=== PATIENT | male | born 1965 | race Caucasian/White ===

== ENCOUNTER 2016-05-20 16:31 | Emergency (ER) | payer MEDICAID ==
[~2016-05-20] VITALS: Wt 105.0 kg
[~2016-05-20 16:31] MED LIST: NO MEDS TAKEN
[2016-05-20] MEDS ORDERED: HYDR-902 PO (16:50)
[2016-05-20] MEDS ORDERED: ACYC800T57 PO (16:50)
--- NOTE | 2016-05-20 17:32 | ERD ---
ER Documentation Chief Complaint Date/Time DATE: 05/20/16 TIME: 17:30 Chief Complaint LOWER LEFT SIDED ABD PAIN X 3 DAYS HPI Patient is a 51-year-old male with no medical problems who presents with abdominal pain. The pain is left-sided and radiates down his lower back and over his upper left leg. He said that it feels warm and that there are "blisters filled with fluid". He has fevers. He tried ibuprofen for pain. He does not currently have a primary doctor. Upon review of old medical records patient one previous visit to the ER in 2010. ROS All systems reviewed and are negative except as per history of present illness. Medications Home Meds Active Scripts Hydrocodone/Acetaminophen ([place] 10-325 Tablet) 1 Each Tablet, 1 TAB PO Q6H Y for PAIN, #16 TAB Prov:STELLA PAVON MD 05/20/16 Acyclovir* (Zovirax*) 800 Mg Tablet, 800 MG PO 5 TIMES DAILY for 7 Days, TAB Prov:STELLA PAVON MD 05/20/16 Reported Medications [No Meds Taken] No Conflict Check 06/23/10 Allergies Allergies: Coded Allergies: No Known Drug Allergy (Verified Allergy, Mild, 06/23/10) PMhx/Soc Medical and Surgical Hx: pt denies Medical Hx History of Surgery: No Anesthesia Reaction: No Hx Neurological Disorder: No Hx Respiratory Disorders: No Hx Cardiac Disorders: No Hx Psychiatric Problems: No Hx Miscellaneous Medical Probl: No Hx Alcohol Use: No Hx Substance Use: No Hx Tobacco Use: No Smoking Status: Never smoker FmHx Family History: No diabetes Physical Exam Vitals Vital Signs Date Time Temp Pulse Resp B/P Pulse Ox O2 Delivery O2 Flow Rate FiO2 05/20/16 16:47 98.0 76 18 166/105 98 Physical Exam Const: Mild distress secondary to pain Head: Atraumatic Eyes: Normal Conjunctiva ENT: Normal External Ears, Nose and Mouth. Neck: Full range of motion..~ No meningismus. Resp: Clear to auscultation bilaterally Cardio: Regular rate and rhythm, no murmurs Abd: Soft, non tender, non distended. Normal bowel sounds Skin: Dermatomal distribution of vesicles over the L3 dermatome consistent with herpes zoster Back: No midline or flank tenderness Ext: No cyanosis, or edema Neur: Awake and alert Psych: Normal Mood and Affect Procedures/MDM Patient is a 51-year-old male presents with what appears to be acute herpes zoster. The patient will be given a prescription for [place] and acyclovir. This does not appear to be disseminated at this time. He is otherwise well- appearing. The patient will be discharged home and can follow-up with the local clinics within 24-48 hours for evaluation. He can return sooner for any worsening symptoms. Departure Diagnosis: Primary Impression: Shingles Herpes zoster complications: without complications Qualified Code: B02.9 - Herpes zoster without complication Condition: Fair Patient Instructions: Shingles (Herpes Zoster) [facility] Usted se ross hecho un examen mdico de control que le indica que no est en dat condicin que requiera tratamiento urgente en el Departamento de Emergencia. Un estudio ms profundo y el tratamiento de spence condicin pueden esperar sin ningn riesgo hasta que usted sea atendida/o en el consultorio de specne mdico o dat cl dayanna. Es responsabilidad suya arreglar dat donna para el seguimiento del elvira. MANEJO DE CONDICIONES NO URGENTES EN EL FUTURO 1) Si usted tiene un mdico de atencin primaria: Usted debera llamar a spence mdico de atencin primaria antes de venir al departamento de emergencia. Despus de las horas de consultorio, spence doctor o spence asociado/a est disponible por telfono. El mdico o enfermero de bautista en el servicio telefnico puede asesorarle por madi medio para atender el problema, o elvira contrario se puede programar dat donna. 2) Si usted no tiene un mdico de atencin primaria: Llame al mdico o clnica de referencia que aparece abajo monica las horas de consultorio para hacer dat donna para que le vean. CLINICAS: [facility] [phone] [address] [facility] [phone] [address] [facility] [phone] [facility] [phone] [facility] [phone] [facility]. [phone] [address] Additional Instructions: Llame al doctor MAANA y temi dat DONNA PARA DENTRO DE 1-2 NIELSEN.Dgale a la secretaria que nosotros le instruimos hacer esta donna.Avise o llame si spence condicin se empeora antes de la donna. Regresa aqui si peor o no mejor. STELLA PAVON MD May 20, 2016 17:32
== END 2016-05-20 17:23 | disposition home or self-care (01) ==
LOC: E/R 16:31
DX: B02.9 Zoster without complications (principal)
CPT/HCPCS: 99284

== ENCOUNTER 2016-05-27 20:01 | Emergency (ER) | payer MEDICAID ==
[~2016-05-27] VITALS: Ht 162.6 cm; Wt 92.0 kg
[~2016-05-27 20:01] MED LIST changes: +ACYC800T57 PO; +HYDR-902 PO
[2016-05-27 20:40] VITALS: Ht 162.6 cm; Wt 92.0 kg
[2016-05-27] MEDS ORDERED: ACETAMINOPHEN 325 MG TAB PO STA (21:37)
--- NOTE | 2016-05-27 21:42 | ERA ---
ER Documentation Chief Complaint Date/Time DATE: 05/27/16 TIME: 21:42 Chief Complaint Bilateral Leg pain x1 week HPI The patient is a 51-year-old male, presenting to the ER because of fever, weakness, bilateral knee pain for 1 day. He was diagnosed with shingles on May 20, 2016 and being treated with [place] and acyclovir. The rash on the right lower extremity is disappearing, however the pain is worse. He denies headache, neck pain, chest pain, dyspnea abdominal pain, vomiting, dysuria, diarrhea. He does not smoke nor drink Past medical/surgical history: None ROS All systems reviewed and are negative except as per history of present illness. Medications Home Meds Active Scripts Ibuprofen* (Motrin*) 600 Mg Tab, 600 MG PO Q6H Y for PAIN, #30 TAB Prov:MONTSERRAT SALES MD 05/27/16 Clindamycin Hcl* (Clindamycin Hcl*) 300 Mg Capsule, 300 MG PO QID for 10 Days, CAP Prov:MONTSERRAT SALES MD 05/27/16 Hydrocodone/Acetaminophen ([place] 10-325 Tablet) 1 Each Tablet, 1 TAB PO Q6H Y for PAIN, #16 TAB Prov:STELLA PAVON MD 05/20/16 Acyclovir* (Zovirax*) 800 Mg Tablet, 800 MG PO 5 TIMES DAILY for 7 Days, TAB Prov:STELLA PAVON MD 05/20/16 Reported Medications [No Meds Taken] No Conflict Check 06/23/10 Allergies Allergies: Coded Allergies: No Known Drug Allergy (Verified Allergy, Mild, 06/23/10) PMhx/Soc Medical and Surgical Hx: pt denies Surgical Hx History of Surgery: No Anesthesia Reaction: No Hx Neurological Disorder: Yes (seen for shingles 1 week ago) Hx Respiratory Disorders: No Hx Cardiac Disorders: No Hx Psychiatric Problems: No Hx Miscellaneous Medical Probl: Yes (gout, ) Hx Alcohol Use: No Hx Substance Use: No Hx Tobacco Use: No Smoking Status: Never smoker Physical Exam Vitals Vital Signs Date Time Temp Pulse Resp B/P Pulse Ox O2 Delivery O2 Flow Rate FiO2 05/27/16 23:51 99.3 94 16 133/72 99 05/27/16 20:40 102.0 110 20 157/101 96 Physical Exam Const: No acute distress. Head: Atraumatic. Eyes: Normal Conjunctiva. ENT: Normal External Ears, Nose and Mouth. Bilateral tympanic membranes and oropharynx are within normal limit Neck: Full range of motion. No meningismus. Resp: Clear to auscultation bilaterally. Cardio: Regular rate and rhythm, no murmurs. Abd: Soft, non distended, normal bowel sounds, non tender. Skin: No petechiae or rashes. Back: No midline or flank tenderness. Ext: No cyanosis, or edema. Bilateral knee with mild tender, bilateral elbow is with full range of motion, nontender. The shingle rash on the right lower extremity improved, no vesicle, no petechia, minimal erythema and minimally warm to touch. Vague bilateral calf tenderness Neur: Awake and alert. No focal deficit Psych: Normal Mood and Affect. Result Diagram: 05/27/165 05/27/165 Results 24 hrs Laboratory Tests Test 05/27/16 22:15 05/27/16 23:21 White Blood Count 11.910^3/ul Red Blood Count 4.7110^6/ul Hemoglobin 14.1g/dl Hematocrit 42.8% Mean Corpuscular Volume 90.9fl Mean Corpuscular Hemoglobin 29.9pg Mean Corpuscular Hemoglobin Concent 32.9g/dl Red Cell Distribution Width 13.2% Platelet Count 14706^3/UL Mean Platelet Volume 11.2fl Neutrophils % 69.2% Lymphocytes % 20.7% Monocytes % 8.7% Eosinophils % 0.3% Basophils % 0.5% Nucleated Red Blood Cells % 0.0/100WBC Neutrophils # 8.210^3/ul Lymphocytes # 2.510^3/ul Monocytes # 1.010^3/ul Eosinophils # 0.010^3/ul Basophils # 0.110^3/ul Nucleated Red Blood Cells # 0.010^3/ul Prothrombin Time 14.0Sec Prothrombin Time Ratio 1.1 INR International Normalized Ratio 1.08 Activated Partial Thromboplast Time 28.4Sec Sodium Level 139mmol/L Potassium Level 5.2mmol/L Chloride Level 104mmol/L Carbon Dioxide Level 25mmol/L Anion Gap 15 Blood Urea Nitrogen 18mg/dl Creatinine 1.12mg/dl Glucose Level 120mg/dl Lactic Acid Level 1.1mmol/L Calcium Level 9.4mg/dl Total Bilirubin 1.0mg/dl Direct Bilirubin 0.00mg/dl Indirect Bilirubin 1.0mg/dl Aspartate Amino Transf (AST/SGOT) 35IU/L Alanine Aminotransferase (ALT/SGPT) 42IU/L Alkaline Phosphatase 87IU/L Total Protein 9.3g/dl Albumin 4.4g/dl Globulin 4.90g/dl Albumin/Globulin Ratio 0.89 Lipase 125U/L Bedside Urine pH (LAB) 5.0 Bedside Urine Protein (LAB) Trace Bedside Urine Glucose (UA) Negative Bedside Urine Ketones (LAB) Negative Bedside Urine Blood Negative Bedside Urine Nitrite (LAB) Negative Bedside Urine Leukocyte Esterase (L Negative Current Medications Medications (Trade) Dose Ordered Sig/Rosa Route PRN Reason Start Time Stop Time Status Last Admin Dose Admin Acetaminophen (Tylenol Tab) 650 mg ONCE STAT PO 05/27/16 21:37 05/27/16 21:40 DC 05/27/16 21:56 Ibuprofen (Motrin) 600 mg ONCE ONCE PO 05/27/16 22:00 05/27/16 22:01 DC 05/27/16 21:55 Procedures/[place] [address] Radiology Main Line: [phone] DIAGNOSTIC IMAGING REPORT Patient: RUPAL MACHUCA : 1965 Age: 51 Sex: M [id number] DOS: 05/27/16 2137 Ordering MD: MONTSERRAT SALES MD Location: FTE Room/Bed: PROCEDURE: XR Knees. CLINICAL INDICATION: Bilateral knee pain. Sepsis. TECHNIQUE: Total of six views. Frontal, oblique, and lateral views of both knees. COMPARISON: No prior study is available for comparison. FINDINGS: On the right side, there is a bony exostosis arising from the distal medial femoral condyle measuring 1.3 x 1.3 cm. There is no fracture or dislocation. There is no lytic or blastic lesion. There are moderate degenerative changes with osteophytes arising from all 3 joint compartment margins and tricompartment joint space narrowing. There is no joint effusion. On the left side, there is no fracture or dislocation. There is no lytic or blastic lesion. There are moderate degenerative changes with osteophytes arising from all 3 joint compartment margins and tricompartment joint space narrowing. There is a small joint effusion. IMPRESSION: 1. Moderate degenerative changes of both knees. 2. Bony exostosis arising from the distal medial femoral condyle, probably a benign osteochondroma. 3. Small left knee joint effusion. RPTAT: QQ .Jon Voss MD, MD Date Time Electronically viewed and signed by .Jon Voss MD, on 05/27/2016 22:52 .R/ CC: MONTSERRAT SALES MD [place] [address] Radiology Main Line: [phone] DIAGNOSTIC IMAGING REPORT Patient: RUPAL MACHUCA : 1965 Age: 51 Sex: M MR #: [id number] DOS: 05/27/167 Ordering MD: MONTSERRAT SALES MD Location: FTE Room/Bed: PROCEDURE: XR Chest. CLINICAL INDICATION: Cough. Sepsis. TECHNIQUE: Single frontal view. COMPARISON: None. FINDINGS: The lungs are clear. The heart size is normal. There is calcification in the aorta consistent with atherosclerosis. There is no pleural effusion. There is no pneumothorax. IMPRESSION: 1. Atherosclerosis. 2. Clear lungs. RPTAT: QQ .Jon Voss MD, Date Time Electronically viewed and signed by .Jno Voss MD, MD on 05/27/2016 22:52 .R/ CC: MONTSERRAT SALES MD [place] [address] Radiology Main Line: [phone] DIAGNOSTIC IMAGING REPORT Patient: RUPAL MACHUCA : 1965 Age: 51 Sex: M MR #: [id number] [facility] #: [id number] DOS: 05/27/16 2201 Ordering MD: MONTSERRAT SALES MD Location: FTE Room/Bed: PROCEDURE: US bilateral lower extremity veins. CLINICAL INDICATION: Bilateral leg pain and swelling. TECHNIQUE: Multiple longitudinal and transverse images of the bilateral lower extremity veins were obtained with cano scale and color Doppler imaging. The common femoral vein, femoral vein, and popliteal vein were evaluated. 2D grayscale measurements with compression sonography, color Doppler, and pulsed Doppler with augmentation. COMPARISON: No prior studies are available for comparison. FINDINGS: The bilateral common femoral, femoral and popliteal veins are normally compressible throughout. Color flow demonstrates normal filling of the vessels. Normal waveforms are visualized and there is normal response to augmentation. IMPRESSION: 1. No evidence of deep vein thrombosis involving either lower extremity. RPTAT: QQ .Jon Voss MD, MD Date Time Electronically viewed and signed by .Jon Voss MD, MD on 05/27/2016 22:59 .R/ CC: MONTSERRAT SALES MD EKG: Read by emergency physician Rate/Rhythm: Normal Sinus Rhythm 99 beats per min QRS, ST, T-waves: No ST elevation, no T wave inversion Impression: Normal EKG MEDICAL MAKING DECISION: The patient is a 51-year-old male, presenting with acute SIRS, acute left lower extremity cellulitis, acute febrile illness of unclear etiology, acute bilateral knee pain. He was treated with Motrin and Tylenol for fever and clindamycin p.o. for left leg cellulitis with good response. Vital signs improved, blood pressure 133/72, rate 94, temperature 99.3 The differential diagnoses considered include but are not limited to septic knee joint, sepsis, pneumonia, cystitis, pyelonephritis Departure Diagnosis: Primary Impression: SIRS (systemic inflammatory response syndrome) Additional Impressions: Acute febrile illness Left leg cellulitis Condition: Good Comments He was discharged with clindamycin, Motrin He was advised to return tomorrow for reevaluation, sooner if any concern MONTSERRAT SALES MD May 27, 2016 21:42
[2016-05-27] MEDS ORDERED: IBUPROFEN 600 MG TAB PO ONE (22:00)
[2016-05-27 22:26] LABS: ADD SCAN DIFF NO
[2016-05-27 22:29] LABS: BASOPHIL # 0.1 10^3/ul (0.0-0.1); BASOPHILS % 0.5 % (0.0-2.0); EOSINOPHILS % 0.3 % (0.0-7.0); HEMATOCRIT 42.8 % (42.0-52.0); HEMOGLOBIN 14.1 g/dl (14.0-18.0); LYMPHOCYTES # 2.5 10^3/ul (0.8-2.9); LYMPHOCYTES % 20.7 % (15.0-51.0); MEAN CORPUSCULAR HEMOGLOBIN 29.9 pg (29.0-33.0); MEAN CORPUSCULAR HGB CONC 32.9 g/dl (32.0-37.0); MEAN CORPUSCULAR VOLUME 90.9 fl (82.0-101.0); MEAN PLATELET VOLUME 11.2 fl (7.4-10.4); MONOCYTES % 8.7 % (0.0-11.0); NEUTROPHIL # 8.2 10^3/ul (1.6-7.5); NEUTROPHILS % 69.2 % (39.0-77.0); PLATELET COUNT 247 10^3/UL (140-415); RED BLOOD COUNT 4.71 10^6/ul (4.70-6.10); RED CELL DISTRIBUTION WIDTH 13.2 % (11.5-14.5); WHITE BLOOD COUNT 11.9 10^3/ul (4.8-10.8)
[2016-05-27 22:40] LABS: ALBUMIN 4.4 g/dl (3.3-4.9)
[2016-05-27 22:41] LABS: INR 1.08; POTASSIUM 5.2 mmol/L (3.5-5.1); PT RATIO 1.1
[2016-05-27 22:42] LABS: PARTIAL THROMBOPLASTIN TIME 28.4 Sec (25.0-35.0)
[2016-05-27 22:43] LABS: ALBUMIN/GLOBULIN RATIO 0.89; CALCIUM 9.4 mg/dl (8.4-10.2); CREATININE 1.12 mg/dl (0.61-1.24); TOTAL PROTEIN 9.3 g/dl (6.1-8.1)
--- NOTE | 2016-05-27 22:52 | RADRPT ---
PROCEDURE: XR Knees. CLINICAL INDICATION: Bilateral knee pain. Sepsis. TECHNIQUE: Total of six views. Frontal, oblique, and lateral views of both knees. COMPARISON: No prior study is available for comparison. FINDINGS: On the right side, there is a bony exostosis arising from the distal medial femoral condyle measurin g 1.3 x 1.3 cm. There is no fracture or dislocation. There is no lytic or blastic lesion. There a re moderate degenerative changes with osteophytes arising from all 3 joint compartment margins and t ricompartment joint space narrowing. There is no joint effusion. On the left side, there is no fracture or dislocation. There is no lytic or blastic lesion. There are moderate degenerative changes with osteophytes arising from all 3 joint compartment margins and tricompartment joint space narrowing. There is a small joint effusion. IMPRESSION: 1. Moderate degenerative changes of both knees. 2. Bony exostosis arising from the distal medial femoral condyle, probably a benign osteochondroma. 3. Small left knee joint effusion. RPTAT: QQ .Jon Voss MD, MD Date Time Electronically viewed and signed by .Jon Voss MD, MD on 05/27/2016 22:52 .R/
--- NOTE | 2016-05-27 22:53 | RADRPT ---
PROCEDURE: XR Chest. CLINICAL INDICATION: Cough. Sepsis. TECHNIQUE: Single frontal view. COMPARISON: None. FINDINGS: The lungs are clear. The heart size is normal. There is calcification in the aorta consistent with atherosclerosis. There is no pleural effusion. There is no pneumothorax. IMPRESSION: 1. Atherosclerosis. 2. Clear lungs. RPTAT: QQ .Jon Voss MD, MD Date Time Electronically viewed and signed by .Jon Voss MD, MD on 05/27/2016 22:52 .R/
--- NOTE | 2016-05-27 22:59 | RADRPT ---
PROCEDURE: US bilateral lower extremity veins. CLINICAL INDICATION: Bilateral leg pain and swelling. TECHNIQUE: Multiple longitudinal and transverse images of the bilateral lower extremity veins were obtained with cano scale and color Doppler imaging. The common femoral vein, femoral vein, and popl iteal vein were evaluated. 2D grayscale measurements with compression sonography, color Doppler, and pulsed Doppler with augmentation. COMPARISON: No prior studies are available for comparison. FINDINGS: The bilateral common femoral, femoral and popliteal veins are normally compressible throughout. Col or flow demonstrates normal filling of the vessels. Normal waveforms are visualized and there is no rmal response to augmentation. IMPRESSION: 1. No evidence of deep vein thrombosis involving either lower extremity. RPTAT: QQ .Jno Voss MD, MD Date Time Electronically viewed and signed by .Jon Voss MD, on 05/27/2016 22:59 .R/
[2016-05-27 23:22] LABS: URINE BLOOD (Dip) POC Negative (NEGATIVE)
[2016-05-27] MEDS ORDERED: CLIN-73 PO (23:44)
[2016-05-27] MEDS ORDERED: IBUP-1542 PO (23:45)
[2016-05-27 23:51] VITALS: BP 133/72; PULSE 94; RESP 16; TEMP 99.3
[2016-05-28] MEDS ORDERED: CLINDAMYCIN 300 MG CAP PO ONE
== END 2016-05-28 00:32 | disposition home or self-care (01) ==
LOC: FTE 20:01
DX: R50.9 Fever, unspecified (principal); R65.10 Systemic inflammatory response syndrome (SIRS) of non-infectious origin without acute organ dysfunction; L03.116 Cellulitis of left lower limb; M79.605 Pain in left leg
CPT/HCPCS: 71010; 73562; 80053; 81003; 83605; 83690; 85025; 85610; 85730; 87040; 93005; 93970; Z7610

== ENCOUNTER 2016-06-03 16:51 | Emergency (ER) | payer MEDICAID ==
[~2016-06-03] VITALS: Wt 91.0 kg
[~2016-06-03 16:51] MED LIST changes: +CLIN-73 PO; +IBUP-1542 PO
[2016-06-03 16:53] VITALS: Wt 91.0 kg
--- NOTE | 2016-06-03 17:57 | ERD ---
ER Documentation Chief Complaint Date/Time DATE: 06/03/16 TIME: 17:52 Chief Complaint LEFT LEG RASH POSSIBLY SHINGLES HPI 51-year-old male who presents to the emergency room for rashes to left lower extremity. Stated is more on her posterior left knee on flexion. Stated it was itchy for her. Stated that he was here like more than a week ago for the same symptoms. Was prescribed with acyclovir by emergency room provider at that time. Patient stated that he finished the whole course of ascitic liver. Patient stated that he still has mild pain to the area and some itchiness. Denies headache, loss of consciousness, dizziness, blurry vision, changes in vision, photophobia, facial pain, ear pain, throat pain, difficulty swallowing, neck pain, shoulder pain, chest pain, cough, hemoptysis, abdominal pain, back pain, loss of appetite, nausea, vomiting, hematochezia, diarrhea, constipation, urinary symptoms, bladder and bowel incontinences, extremity weakness, extremity tenderness, numbness or tingling sensation, difficulty walking, recent travel, recent exposure to illness, fever, chills. Allergy: No known drug allergies. PMH: Denies. Medications: Denies. Surgery: Denies. Family history: Denies. Primary Social History: Not working at this time. Denies smoking, use of alcohol, use of illegal drugs. ROS All systems reviewed and are negative except as per history of present illness. Medications Home Meds Active Scripts Ibuprofen* (Motrin*) 800 Mg Tab, 800 MG PO Q6H Y for PAIN AND OR ELEVATED TEMP, #30 TAB Prov:LUTHER BOLDEN F 06/03/16 Prednisone (Prednisone) 20 Mg Tablet, 40 MG PO DAILY for 3 Days, TAB Prov:PASILABAN,KLAR F 06/03/16 Prednisone (Prednisone) 20 Mg Tab, 20 MG PO DAILY for 3 Days, TAB Prov:PASILABANULYSSESAR F 06/03/16 Prednisone (Prednisone) 10 Mg Tab, 10 MG PO DAILY for 3 Days, TAB Prov:PASILAULYSSES RAMIREZAR F 06/03/16 Ibuprofen* (Motrin*) 600 Mg Tab, 600 MG PO Q6H Y for PAIN, #30 TAB Prov:MONTSERRAT SALES MD 05/27/16 Clindamycin Hcl* (Clindamycin Hcl*) 300 Mg Capsule, 300 MG PO QID for 10 Days, CAP Prov:MONTSERRAT SALES MD 05/27/16 Hydrocodone/Acetaminophen ([place] 10-325 Tablet) 1 Each Tablet, 1 TAB PO Q6H Y for PAIN, #16 TAB Prov:STELLA PAVON MD 05/20/16 Acyclovir* (Zovirax*) 800 Mg Tablet, 800 MG PO 5 TIMES DAILY for 7 Days, TAB Prov:STELLA PAVON MD 05/20/16 Reported Medications [No Meds Taken] No Conflict Check 06/23/10 Allergies Allergies: Coded Allergies: No Known Drug Allergy (Verified Allergy, Mild, 06/23/10) PMhx/Soc History of Surgery: No Anesthesia Reaction: No Hx Neurological Disorder: Yes (seen for shingles 1 week ago) Hx Respiratory Disorders: No Hx Cardiac Disorders: No Hx Psychiatric Problems: No Hx Miscellaneous Medical Probl: Yes (gout, ) Hx Alcohol Use: No Hx Substance Use: No Hx Tobacco Use: No Physical Exam Vitals Vital Signs Date Time Temp Pulse Resp B/P Pulse Ox O2 Delivery O2 Flow Rate FiO2 06/03/16 16:53 99.0 108 18 179/99 98 Physical Exam Const: Head: Atraumatic Eyes: Normal Conjunctiva ENT: Normal External Ears, Nose and Mouth. Neck: Full range of motion..~ No meningismus. Resp: Clear to auscultation bilaterally Cardio: Regular rate and rhythm, no murmurs Abd: Soft, non tender, non distended. Normal bowel sounds Skin: No petechiae. Healed vesicular rashes to left anterior and posterior knee with no obvious swelling/redness/deformity. Skin is not warm to touch. Back: No midline or flank tenderness Ext: No cyanosis, or edema Neur: Awake and alert Psych: Normal Mood and Affect Procedures/MDM Examination: Please see physical examination. Disease process, medical treatment was explained to the patient and family member. They verbalized understanding and agreed with the medical treatment, and follow-up care. Differential diagnosis: Shingles versus rash versus postherpetic neuralgia Medical decision makin-year-old male who presents to the emergency room for rashes to left lower extremity. Stated is more on her posterior left knee on flexion. Stated it was itchy for her. Stated that he was here like more than a week ago for the same symptoms. Was prescribed with a sick liver by emergency room provider at that time. Patient stated that he still complains of mild pain to the area and some itchiness. Patient's complaint, my physical findings, my reevaluation, I consistent with my final diagnosis of shingles, itchiness, mild pain due to postherpetic neuralgia. Medications prescribed are the following: Motrin. Prednisone. Patient and family member are made aware of the side effects and adverse reactions of the medications prescribed. Instructed on when to seek emergent and medical attention in case allergic/anaphylactic reactions or severe side effects and or adverse reactions to medications. Patient and family member verbalized understanding. Patient instructed Instructed to follow-up with his PCP in 24-48 hours. PCP to refer patient to service captain. Patient and family member verbalized understanding. Instructed to Call 911 for chest pain, shortness of breath. Advised to come back here in ED as soon as possible for severity of symptoms which includes but not limited to: any new symptoms; shortness of breath/difficulty of breathing; cardiovascular changes; severe gastrointestinal symptoms; signs and symptoms of bleeding and or infection; signs of compartment syndrome/neurovascular changes; neurological changes/deficits. Patient and family member verbalized understanding. Upon discharge, patient is alert and oriented x 4, speaks full and clear sentences, denies pain, has no neurological deficits, has no neurovascular deficits, difficulty of breathing. Breathing even and unlabored. Lung sounds are clear to auscultation. Not in distress. Appears comfortable. Ambulatory with steady gait. Appears satisfied with care provided here in ED. Departure Diagnosis: Primary Impression: Rash Additional Impression: Shingles Condition: Good Additional Instructions: Patient instructed Instructed to follow-up with his PCP in 24-48 hours. PCP to refer patient to service captain. Patient and family member verbalized understanding. Instructed to Call 911 for chest pain, shortness of breath. Advised to come back here in ED as soon as possible for severity of symptoms which includes but not limited to: any new symptoms; shortness of breath/difficulty of breathing; cardiovascular changes; severe gastrointestinal symptoms; signs and symptoms of bleeding and or infection; signs of compartment syndrome/neurovascular changes; neurological changes/deficits. Patient and family member verbalized understanding. LUTHER BOLDEN Jun 03, 2016 17:56 Condition: Good Additional Instructions: Patient instructed Instructed to follow-up with his PCP in 24-48 hours. PCP to refer patient to service captain. Patient and family member verbalized understanding. Instructed to Call 911 for chest pain, shortness of breath. Advised to come back here in ED as soon as possible for severity of symptoms which includes but not limited to: any new symptoms; shortness of breath/difficulty of breathing; cardiovascular changes; severe gastrointestinal symptoms; signs and symptoms of bleeding and or infection; signs of compartment syndrome/neurovascular changes; neurological changes/deficits. Patient and family member verbalized understanding. LUTHER BOLDEN Jun 03, 2016 17:56
[2016-06-03] MEDS ORDERED: PRED20TA PO (18:00)
[2016-06-03] MEDS ORDERED: PRED10TA PO (18:00)
[2016-06-03] MEDS ORDERED: PRED20 PO (18:00)
[2016-06-03] MEDS ORDERED: IBUP800T25 PO (18:01)
== END 2016-06-03 18:03 | disposition home or self-care (01) ==
LOC: E/R 16:51
DX: R21 Rash and other nonspecific skin eruption (principal); B02.9 Zoster without complications
CPT/HCPCS: 99283

== ENCOUNTER 2016-06-12 17:34 | Emergency (ER) | payer MEDICAID ==
[~2016-06-12] VITALS: Ht 165.1 cm; Wt 91.0 kg
[~2016-06-12 17:34] MED LIST changes: +IBUP800T25 PO; +PRED10TA PO; +PRED20TA PO
[2016-06-12 17:44] VITALS: Ht 165.1 cm; Wt 91.0 kg
--- NOTE | 2016-06-12 18:29 | ERD ---
ER Documentation Chief Complaint Date/Time DATE: 06/12/16 TIME: 18:21 Chief Complaint LEFT KNEE PAIN HPI This 51-year-old, [place]-speaking, male patient presents to the emergency department today with complaint of left knee pain. Difficulty ambulating. Patient brings in discharge paperwork documenting that he was seen and treated for a left lower extremity cellulitis on May 27, 2016. Treated with clindamycin and ibuprofen. Patient reports he took full course of antibiotics, is taking the ibuprofen with little relief of symptoms. Patient is utilizing crutches to ambulate, is unable to weight-bear. Denies injury, denies fall, denies numbness or tingling to extremities. Reports pain with weightbearing, flexion and extension of left knee. Patient family on speaker phone for translation. ROS All systems reviewed and are negative except as per history of present illness. Medications Home Meds Active Scripts Naproxen* (Naprosyn*) 500 Mg Tablet, 500 MG PO BID Y for PAIN AND/OR INFLAMMATION, #30 TAB Prov:SONDRA,CARSON 06/12/16 Hydrocodone/Acetaminophen ([place] 5-325 Tablet) 1 Each Tablet, 1 TAB PO Q6H Y for PAIN, #7 TAB Prov:SONDRA,CARSON 06/12/16 Ibuprofen* (Motrin*) 800 Mg Tab, 800 MG PO Q6H Y for PAIN AND OR ELEVATED TEMP, #30 TAB Prov:PASILAULYSSES RAMIREZAR F 06/03/16 Prednisone (Prednisone) 20 Mg Tablet, 40 MG PO DAILY for 3 Days, TAB Prov:PASILABANULYSSESAR F 06/03/16 Prednisone (Prednisone) 20 Mg Tab, 20 MG PO DAILY for 3 Days, TAB Prov:PASILABANULYSSESAR F 06/03/16 Prednisone (Prednisone) 10 Mg Tab, 10 MG PO DAILY for 3 Days, TAB Prov:PASILABAN,KLAR F 06/03/16 Ibuprofen* (Motrin*) 600 Mg Tab, 600 MG PO Q6H Y for PAIN, #30 TAB Prov:MONTSERRAT SALES MD 05/27/16 Clindamycin Hcl* (Clindamycin Hcl*) 300 Mg Capsule, 300 MG PO QID for 10 Days, CAP Prov:MONTSERRAT SALES MD 05/27/16 Hydrocodone/Acetaminophen ([place] 10-325 Tablet) 1 Each Tablet, 1 TAB PO Q6H Y for PAIN, #16 TAB Prov:STELLA PAVON MD 05/20/16 Acyclovir* (Zovirax*) 800 Mg Tablet, 800 MG PO 5 TIMES DAILY for 7 Days, TAB Prov:STELLA PAVON MD 05/20/16 Reported Medications [No Meds Taken] No Conflict Check 06/23/10 Allergies Allergies: Coded Allergies: No Known Drug Allergy (Verified Allergy, Mild, 06/12/16) PMhx/Soc History of Surgery: No Anesthesia Reaction: No Hx Neurological Disorder: No Hx Respiratory Disorders: No Hx Cardiac Disorders: No Hx Psychiatric Problems: No Hx Miscellaneous Medical Probl: Yes (gout, ) Hx Alcohol Use: No Hx Substance Use: No Hx Tobacco Use: No Smoking Status: Never smoker Physical Exam Vitals Vital Signs Date Time Temp Pulse Resp B/P Pulse Ox O2 Delivery O2 Flow Rate FiO2 06/12/16 17:44 98.5 99 18 140/93 99 Vitals stable, triage notes reviewed Physical Exam Const: No acute distress Head: Atraumatic Eyes: Normal Conjunctiva, PERRLA, EOMI ENT: Normal External Ears, Nose and Mouth. Neck: Resp: Cardio: Abd: Skin: Skin is cool to touch, no petechiae or rashes Back: Ext: Lower Extremity -left knee: Skin: No laceration Compartments: Soft Motor: Abnormal range of motion with flexion and extension, negative anterior drawer test Sensation: Intact to light touch anterior posterior and lateral surfaces Bones: Patellar tenderness, no tibial tenderness ankle or tenderness of foot or heel. Joints: Soft tissue swelling noted. Pulses/Perfusion: 2+ DP, Capillary refill < 2 seconds Neur: Awake and alert Psych: Normal Mood and Affect Results 24 hrs Current Medications Medications (Trade) Dose Ordered Sig/Rosa Route PRN Reason Start Time Stop Time Status Last Admin Dose Admin Acetaminophen/ Hydrocodone Bitart ([place] (5/325)) 1 tab ONCE ONCE PO 06/12/16 18:30 06/12/16 18:31 DC 06/12/16 18:32 This 51-year-old male patient presents to emergency department for evaluation of left knee pain after treatment of cellulitis. Patient was seen and treated June 27, 2016 with 10 days of clindamycin and ibuprofen. Patient reports taking full course of antibiotic, states ibuprofen is not effective for pain. He has not followed up with his primary care physician. Patient is ambulating on crutches, pain with weightbearing. Physical exam shows no evidence of skin infection. No evidence of septic joint, or fracture suspected patellar effusion , osteoarthritis, x-ray obtained Procedures/MDM PROCEDURE: X-ray left knee. CLINICAL INDICATION: Pain in left knee with cellulitis. TECHNIQUE: 3 views left knee. COMPARISON: Left knee plain film series dated 05/27/2016 FINDINGS: Mild osteophytes in the patellofemoral joint compartment and medial joint compartment. No acute fracture or dislocation. Small joint effusion. Soft tissues are otherwise unremarkable. IMPRESSION: Mild degenerative changes, with small joint effusion, and otherwise without identified acute process. Physician Gianna Date Time This pleasant 51-year-old male patient presents to the emergency department with left knee pain. Patient is ambulating with crutches, reports pain with weightbearing, and physical exam findings support soft tissue swelling, suspected patella effusion. Decreased range of motion. Skin is not hot to touch, no erythema, or suspicion of cellulitis, septic joints, patient denies any injury. Highly suspicious for osteoarthritis x-ray findings mild osteophytes and patellofemoral joint compartment and medial joint compartment no acute fracture or dislocation, small joint effusion soft tissues are otherwise unremarkable. I feel patient is appropriate for outpatient follow-up and management by primary care physician. Degenerative joint disease. Patient will be placed in a knee brace, continue crutches. Given a short dose of [place] , and Naprosyn. Instructed to follow-up with primary care physician for possible referral to local orthopedic physician. I feel the patient is stable for discharge at this time. I have discussed results, examination findings, the treatment plan with the patient and family present prior to discharge. Indications for emergent reevaluation, side effects of medication were also discussed. All questions were answered. Patient verbalizes understanding and agrees with plan of care. Departure Diagnosis: Primary Impression: Knee pain Laterality: left Chronicity: chronic Qualified Code: M25.562 - Chronic pain of left knee Additional Impression: Degenerative joint disease Osteoarthritis location: knee Osteoarthritis type: unspecified Laterality: left Qualified Code: M17.12 - Osteoarthritis of left knee, unspecified osteoarthritis type Condition: Good Patient Instructions: Knee Pain, Uncertain Cause, Living with Osteoarthritis Additional Instructions: Thank you for for coming to [facility] for your care today. Please ask your nurse or provider if you have questions about your care today and do not leave until all your questions have been answered. Please use any medications given as directed and follow-up with your doctor (or the doctor you were referred to) in the next 2-3 days. If you do not have a primary care doctor you may follow up at the [facility] (listed below). You may also use motrin and tylenol as needed for fever and/or pain unless instructed otherwise by your provider or nurse. Indications for more urgent follow-up have been discussed, but you may return to the Emergency Department at ANY time for any worrisome or worsening symptoms. If you have abdominal pain, please know that no test or exam you received is perfect and you should follow up within 8 hours for continued pain. If you had any imaging studies today, such as an X-Ray or CT Scan, these studies will be reviewed later by a radiologist. You will be called if there are important findings that were not identified today, so make sure the contact information you provided at registration is correct. If you received any narcotic pain control medicine today, such as Vicodin, Morphine or Dilaudid, your coordination and judgment may be affected for a number of hours. Please do not drive or operate heavy machinery, and you may want someone to assist you at home. If you were given a prescription for narcotic medication, be aware that it is very addictive- use sparingly and only if necessary. CARSON AMARO Jun 12, 2016 18:29
[2016-06-12] MEDS ORDERED: HYDROCODONE/APAP (5/325) TAB PO ONE (18:30)
--- NOTE | 2016-06-12 20:24 | RADRPT ---
PROCEDURE: X-ray left knee. CLINICAL INDICATION: Pain in left knee with cellulitis. TECHNIQUE: 3 views left knee. COMPARISON: Left knee plain film series dated 05/27/2016 FINDINGS: Mild osteophytes in the patellofemoral joint compartment and medial joint compartment. No acute fra cture or dislocation. Small joint effusion. Soft tissues are otherwise unremarkable. IMPRESSION: Mild degenerative changes, with small joint effusion, and otherwise without identified acute process . RPTAT: [facility] Physician Gianna Date Time Electronically viewed and signed by Nikia Rodriguez Physician on 06/12/2016 20:24 RS/
[2016-06-12] MEDS ORDERED: NAPR-260 PO (21:01)
[2016-06-12] MEDS ORDERED: HYDR-906 PO (21:01)
== END 2016-06-12 21:18 | disposition home or self-care (01) ==
LOC: FTE 17:34
DX: M25.562 Pain in left knee (principal); M17.12 Unilateral primary osteoarthritis, left knee
CPT/HCPCS: 73562; Z7610

== ENCOUNTER 2016-07-14 18:51 | Emergency (ER) | payer MEDICAID ==
[~2016-07-14] VITALS: Ht 177.8 cm; Wt 96.0 kg
[~2016-07-14 18:51] MED LIST changes: +HYDR-906 PO; +NAPR-260 PO
[2016-07-14 18:58] VITALS: Ht 177.8 cm; Wt 96.0 kg
[2016-07-14] MEDS ORDERED: KETOROLAC 30 MG INJ IM STA (19:29)
[2016-07-14] MEDS ORDERED: COLC0.6T6 PO (19:32)
--- NOTE | 2016-07-14 19:39 | ERD ---
ER Documentation Chief Complaint Date/Time DATE: 07/14/16 TIME: 19:36 Chief Complaint med refill HPI 51-year-old male with a history of gout comes emergency room with left-sided hand pain, left knee pain and left ankle pain for the past several weeks. Pain is achy, worse with movement. Patient states that he does have a history of gout however has not been taking his medication, he also states that he did eat red meat and shellfish a week ago. He denies any trauma or fevers or chills. No associated rash with this. ROS All systems reviewed and are negative except as per history of present illness. Medications Home Meds Active Scripts Colchicine* (Colcrys*) 0.6 Mg Tablet, 0.6 MG PO as directed, #3 TAB Prov:MARKO ROSENBAUM PA-C 07/14/16 Naproxen* (Naprosyn*) 500 Mg Tablet, 500 MG PO BID Y for PAIN AND/OR INFLAMMATION, #30 TAB Prov:SONDRA,CARSON 06/12/16 Hydrocodone/Acetaminophen ([place] 5-325 Tablet) 1 Each Tablet, 1 TAB PO Q6H Y for PAIN, #7 TAB Prov:SONDRA,CARSON 06/12/16 Ibuprofen* (Motrin*) 800 Mg Tab, 800 MG PO Q6H Y for PAIN AND OR ELEVATED TEMP, #30 TAB Prov:PASILABANULYSSESAR F 06/03/16 Prednisone (Prednisone) 20 Mg Tablet, 40 MG PO DAILY for 3 Days, TAB Prov:PASILABAN,KLAR F 06/03/16 Prednisone (Prednisone) 20 Mg Tab, 20 MG PO DAILY for 3 Days, TAB Prov:PASILABANULYSSESAR F 06/03/16 Prednisone (Prednisone) 10 Mg Tab, 10 MG PO DAILY for 3 Days, TAB Prov:PASILABAN,KLAR F 06/03/16 Ibuprofen* (Motrin*) 600 Mg Tab, 600 MG PO Q6H Y for PAIN, #30 TAB Prov:MONTSERRAT SALES MD 05/27/16 Clindamycin Hcl* (Clindamycin Hcl*) 300 Mg Capsule, 300 MG PO QID for 10 Days, CAP Prov:MONTSERRAT SALES MD 05/27/16 Hydrocodone/Acetaminophen ([place] 10-325 Tablet) 1 Each Tablet, 1 TAB PO Q6H Y for PAIN, #16 TAB Prov:OSTICK,STELLA MD 05/20/16 Acyclovir* (Zovirax*) 800 Mg Tablet, 800 MG PO 5 TIMES DAILY for 7 Days, TAB Prov:STELLA PAVON MD 05/20/16 Reported Medications [No Meds Taken] No Conflict Check 06/23/10 Allergies Allergies: Coded Allergies: No Known Drug Allergy (Verified Allergy, Mild, 06/12/16) PMhx/Soc Medical and Surgical Hx: pt denies Surgical Hx History of Surgery: No Anesthesia Reaction: No Hx Neurological Disorder: No Hx Respiratory Disorders: No Hx Cardiac Disorders: No Hx Psychiatric Problems: No Hx Miscellaneous Medical Probl: Yes (gout, ) Hx Alcohol Use: No Hx Substance Use: No Hx Tobacco Use: No Smoking Status: Never smoker Physical Exam Vitals Vital Signs Date Time Temp Pulse Resp B/P Pulse Ox O2 Delivery O2 Flow Rate FiO2 07/14/16 18:58 97.8 90 20 165/90 98 Physical Exam General: Well-developed, well-nourished. The patient appears in no acute distress. HEENT: Head is normocephalic, atraumatic. No scleral icterus. Neck: Supple. Nontender. Lungs: Clear to auscultation. Normal air movement. Heart: Regular rate and rhythm. S1 and S2 are normal. No murmurs, gallops, or rubs. Abdomen: Soft, nontender, nondistended. Bowel sounds are normoactive. Extremities: Left wrist is atraumatic, has full range of motion flexion extension, no overlying erythema, no rash. Left knee has full range of motion flexion extension, no erythema or warmth. Patient's left ankle and foot appear to be atraumatic, dorsalis pedis pulse 2+, good capillary refill. Neurologic: Alert and oriented 3. No focal deficits. Skin: Normal turgor. No rash or lesions. Results 24 hrs Current Medications Medications (Trade) Dose Ordered Sig/Rosa Route PRN Reason Start Time Stop Time Status Last Admin Dose Admin Ketorolac Tromethamine (Toradol) 30 mg ONCE STAT IM 07/14/16 19:29 07/14/16 19:30 DC Procedures/MDM ED course: Patient was given Toradol 30 mg IM. MDM: 51-year-old male comes in with left wrist, left knee, left ankle pain, likely from gouty arthritis. Patient has full range of motion to all joints, there is no associated febrile illness, rash or signs of infection. Differentials considered but unlikely include tenosynovitis, osteomyelitis, septic joint, fracture, subluxation or dislocation. He was given Toradol and responded well, and will be given colchicine to go home with. Departure Diagnosis: Primary Impression: Gout Condition: Good Patient Instructions: Treating Gout Attacks, Gout Diet Additional Instructions: Llame al doctor MAANA y temi dat DONNA PARA DENTRO DE 1-2 NIELSEN.Dgale a la secretaria que nosotros le instruimos hacer esta donna.Avise o llame si spence condicin se empeora antes de la donna. Regresa aqui si peor o no mejor. MARKO ROSENBAUM PA-C July 14, 2016 19:39
== END 2016-07-14 20:40 | disposition home or self-care (01) ==
LOC: FTE 18:51
DX: M10.9 Gout, unspecified (principal)
CPT/HCPCS: 96372; J1885; Z7502

== ENCOUNTER 2016-12-08 18:40 | Emergency (ER) | payer SELFPAY ==
[~2016-12-08] VITALS: Ht 160 cm; Wt 98.0 kg
[~2016-12-08 18:40] MED LIST changes: +COLC0.6T6 PO
[2016-12-08 19:21] VITALS: Ht 160 cm; Wt 98.0 kg
== END 2016-12-08 22:28 | disposition left against medical advice (07) ==
LOC: FTE 18:40
DX: Z53.21 Procedure and treatment not carried out due to patient leaving prior to being seen by health care provider (principal)

== ENCOUNTER 2017-01-31 14:24 | Emergency (ER) | payer MEDICAID ==
[~2017-01-31] VITALS: Wt 95.0 kg
[2017-01-31] MEDS ORDERED: ONDANSETRON 4 MG INJ IV STA (16:46)
[2017-01-31] MEDS ORDERED: FAMOTIDINE 20 MG INJ IV STA (16:46)
[2017-01-31] MEDS ORDERED: SOD CHLORIDE 0.9% 1,000 ML IV STA (16:46)
[2017-01-31] MEDS ORDERED: morphine 4 MG/ML VIAL IV STA (16:46)
[2017-01-31 17:15] LABS: BASOPHILS % 0.4 % (0.0-2.0); HEMATOCRIT 44.4 % (42.0-52.0); HEMOGLOBIN 15.3 g/dl (14.0-18.0); LYMPHOCYTES # 1.3 10^3/ul (0.8-2.9); LYMPHOCYTES % 12.1 % (15.0-51.0); MEAN CORPUSCULAR HEMOGLOBIN 29.9 pg (29.0-33.0); MEAN CORPUSCULAR HGB CONC 34.5 g/dl (32.0-37.0); MEAN CORPUSCULAR VOLUME 86.7 fl (82.0-101.0); MEAN PLATELET VOLUME 11.6 fl (7.4-10.4); MONOCYTE # 0.3 10^3/ul (0.3-0.9); MONOCYTES % 3.1 % (0.0-11.0); NEUTROPHIL # 9.3 10^3/ul (1.6-7.5); NEUTROPHILS % 83.9 % (39.0-77.0); PLATELET COUNT 224 10^3/UL (140-415); RED BLOOD COUNT 5.12 10^6/ul (4.70-6.10); RED CELL DISTRIBUTION WIDTH 12.9 % (11.5-14.5)
--- NOTE | 2017-01-31 17:29 | RADRPT ---
PROCEDURE: CT abdomen and pelvis without contrast. CLINICAL INDICATION: Abdominal pain. Vomiting for 2 days TECHNIQUE: CT scan of the abdomen and pelvis without contrast was performed. Sagittal and coronal reformatted images were obtained from the axial source images. One or more of the following dose re duction techniques were used: Automated exposure control, adjustment of the mA and/or kV according t o patient size, use of iterative reconstruction technique. CTDI = 18.36 mGy; DLP = 1303.63 mGy-cm COMPARISON: None available. FINDINGS: The study is limited because of motion artifact. Visualized lower thorax: The lung bases are clear of acute infiltrates, calcified granuloma in the inferior lingula is present. There is some subsegmental atelectasis of the right lower lobe with chris vation of the right hemidiaphragm. There is no evidence for pleural effusion. Cardiomegaly is prese nt. Liver, gallbladder, pancreas and spleen: Diffuse low attenuation of the liver is compatible with he patic steatosis with preserved liver size and contour> . There is no evidence for a liver mass or d uctal dilatation. The gallbladder is unremarkable. No common bile duct abnormality is demonstrated . The pancreas is unremarkable. The spleen is normal in size. Adrenal glands and genitourinary system: The adrenal glands are normal bilaterally. Lobulated conto ur to the kidneys is present bilaterally possibly the sequela of scarring. There are small cysts of the renal cortices bilaterally with some dependent calcifications of the right renal cysts. Equivoca l tiny 1 mm right upper pole renal calculi are suggested without hydronephrosis of either kidney. T he ureters are unremarkable. A calcification in the anterior superior urinary bladder is estimated a t 4 mm possibly an adherent bladder calculus or calculus within a small bladder diverticulum. The se quela of infection is a possibility. There is no urinary bladder wall thickening. The prostate glan d is normal in size. The visualized scrotum shows a tiny bilateral hydroceles. There is a small fat- containing right inguinal hernia Gastrointestinal system: The stomach is normal in caliber with no abnormality of significance. The small bowel is normal in caliber with no ileus, obstruction or wall thickening. The appendix and s urrounding fat are within the limits of normal. Some diverticular disease of the distal colon is pr esent. There is no evidence for colitis or diverticulitis. Peritoneum, retroperitoneum, lymph nodes and vessels: The abdominal aorta is normal in caliber. The re is no evidence for atherosclerotic calcification. The inferior vena cava is unremarkable. There is no evidence for adenopathy or mass. There is no ascites. No pneumoperitoneum is seen Osseous structures and musculoskeletal findings: There is no fracture, lytic or blastic lesion. De generative disc disease is greatest at L2-3 and L5-S1. There is 50 spondylolysis bilaterally without spondylolisthesis No muscular abnormality or soft tissue pathology is present. RPTAT:HJJR IMPRESSION: 1. Limited examination because of motion artifact. 2. No evidence of a bowel obstruction or ileus. 3. Cardiomegaly, right basilar subsegmental atelectasis with mild right hemidiaphragm elevation and chronic granulomatous disease of the visualized thorax. 4. Hepatic steatosis. 5. Lobulated renal contour bilaterally with likely acquired cystic disease of the kidneys and equiv ocal tiny nonobstructing right upper pole renal calculi. 6. Calcification in the anterior superior urinary bladder possibly an adherent bladder calculus of 4 mm. 7. Tiny bilateral hydroceles. 8. Small fat-containing right inguinal hernia. 9. Minimal diverticular disease of the distal colon without diverticulitis. 10. Bilateral L5 spondylolysis without spondylolisthesis and degenerative disc disease greatest at L2-3 and L5-S1. Physician Mila Date Time Electronically viewed and signed by Physician Mila on 01/31/2017 17:29 /
[2017-01-31 17:33] LABS: ALBUMIN 4.8 g/dl (3.3-4.9); ALBUMIN/GLOBULIN RATIO 1.06; BILIRUBIN,INDIRECT 0.5 mg/dl (0-1.1); BILIRUBIN,TOTAL 0.5 mg/dl (0.2-1.3); CALCIUM 9.8 mg/dl (8.4-10.2); CREATININE 1.14 mg/dl (0.61-1.24); POTASSIUM 4.2 mmol/L (3.5-5.1); TOTAL PROTEIN 9.3 g/dl (6.1-8.1)
--- NOTE | 2017-01-31 17:40 | RADRPT ---
PROCEDURE: Right upper quadrant ultrasound CLINICAL INDICATION: Abdominal pain TECHNIQUE: Multiple real-time images were acquired of the patient's abdomen and right retroperiton eum utilizing a high resolution transducer. COMPARISON: CT obtained same day FINDINGS: The liver is increase in echogenicity and measures 15.4 cm. No focal hepatic masses are seen. The gallbladder is physiologically distended. There is no evidence of gallstones, gallbladder wall thic kening, or pericholecystic fluid. The intra and extrahepatic bile ducts are normal in caliber. The common bile duct measures 4.3 mm. Pancreas and aorta are not visualized. Survey views of the right kidney demonstrate no evidence of hydronephrosis or renal calculi. Right kidney has a slightly lobulated contour. The right kidney measures 10.6 cm. IMPRESSION: 1. No evidence of cholelithiasis or acute cholecystitis. 2. Fatty change of the liver with focal areas of sparing in the gallbladder fossa. 3. No biliary duct dilatation. 4. Pancreas not visualized RPTAT: .Calvin Posadas MD, Date Time Electronically viewed and signed by .Calvin Posadas MD, on 01/31/2017 17:39 .W/
[2017-01-31 18:13] LABS: ADD UMIC YES; UR ASCORBIC ACID 20 mg/dL (NEGATIVE); UR BILIRUBIN (Dip) NEGATIVE (NEGATIVE); UR BLOOD (Dip) NEGATIVE (NEGATIVE); UR CLARITY CLEAR (CLEAR); UR COLOR YELLOW (YELLOW); UR GLUCOSE (Dip) NEGATIVE (NEGATIVE); UR KETONES (Dip) NEGATIVE (NEGATIVE); UR LEUKOCYTE ESTERASE (Dip) NEGATIVE Leu/ul (NEGATIVE); UR NITRITE (Dip) NEGATIVE (NEGATIVE); UR RBC 2 /HPF (0-5); UR SPECIFIC GRAVITY (Dip) 1.018 (1.003-1.030); UR TOTAL PROTEIN (Dip) 1+ mg/dl (NEGATIVE); UR UROBILINOGEN (Dip) NEGATIVE (NEGATIVE)
[2017-01-31] MEDS ORDERED: MECLIZINE 12.5 MG TAB PO ONE (19:30)
--- NOTE | 2017-01-31 19:52 | RADRPT ---
PROCEDURE: CT Brain without contrast. CLINICAL INDICATION: Weakness, neurological deficit. TECHNIQUE: A CT of the brain was performed on multidetector high-resolution CT scanner utilizing a xial sections from the skull base through the vertex without contrast. The scan was reviewed in sof t tissue brain and high frequency resolution bone algorithm windows. Images were reviewed on a high -resolution PACS workstation. One or more the following does reduction techniques were utilized: Aut omated exposure control, adjustment of the mA/ or kV according to patient's size, or use of iterativ e reconstruction technique. The exam CTDI = 44.4 mGy and the DLP = 720.23 mGy-cm. DICOM images are available. COMPARISON: None available. FINDINGS: The ventricles and sulci are minimally prominent indicative of volume loss. There is no intracranial hemorrhage, mass effect or midline shift. No abnormal intra-axial or extra-axial fluid collections are seen. The cano/white matter differentiation is preserved. There are mild scattered foci of hypoattenuation in the white matter, which are nonspecific in etio logy but likely reflect chronic small vessel ischemic changes. The visualized paranasal sinuses are essentially clear. IMPRESSION: 1. No acute intracranial hemorrhage, transcortical infarction or mass effect. If clinical concern p ersists consider brain MRI. 2. Mild chronic small vessel ischemic changes. 3. Minimal generalized cerebral volume loss. RPTAT: HH .Javon Disla MD, MD Date Time Electronically viewed and signed by .Javon Disla MD, MD on 01/31/2017 19:52 .N/
[2017-01-31] MEDS ORDERED: ONDA-43 PO (20:12)
--- NOTE | 2017-01-31 20:23 | ERD ---
ER Documentation Chief Complaint Chief Complaint VOMITING SINCE LAST NIGHT HPI This is a 51-year-old male presents to the ER with multiple complaints. Patient states that he had some tacos last night and since then he has been vomiting. Vomiting is nonbilious nonbloody. He denies any diarrhea. Patient complains of abdominal pain all over his abdomen states that he feels very weak and vomiting and that whenever he stands up he feels like he is going to pass out. Patient he has fallen 5 times. Patient denies any chest pain or shortness of breath. Patient is also complaining of dizziness which is described as a spinning sensation. patient denies any head trauma. ROS 12 point review of systems was done, all negative except per HPI. Medications Home Meds Active Scripts Ondansetron Hcl* (Zofran*) 4 Mg Tab, 4 MG PO Q4H Y for NAUSEA AND OR VOMITING for 3 Days, TAB Prov:DONNIE SANTOS 01/31/17 Colchicine* (Colcrys*) 0.6 Mg Tablet, 0.6 MG PO as directed, #3 TAB Prov:MARKO ROSENBAUM PA-C 07/14/16 Naproxen* (Naprosyn*) 500 Mg Tablet, 500 MG PO BID Y for PAIN AND/OR INFLAMMATION, #30 TAB Prov:SONDRA,CARSON 06/12/16 Hydrocodone/Acetaminophen ([place] 5-325 Tablet) 1 Each Tablet, 1 TAB PO Q6H Y for PAIN, #7 TAB Prov:SONDRA,CARSON 06/12/16 Ibuprofen* (Motrin*) 800 Mg Tab, 800 MG PO Q6H Y for PAIN AND OR ELEVATED TEMP, #30 TAB Prov:LUTHER BOLDEN F 06/03/16 Prednisone (Prednisone) 20 Mg Tablet, 40 MG PO DAILY for 3 Days, TAB Prov:PASILAULYSSES RAMIREZAR F 06/03/16 Prednisone (Prednisone) 20 Mg Tab, 20 MG PO DAILY for 3 Days, TAB Prov:VITOILALUTHER RAMIREZ F 06/03/16 Prednisone (Prednisone) 10 Mg Tab, 10 MG PO DAILY for 3 Days, TAB Prov:PASILAULYSSES RAMIREZAR F 06/03/16 Ibuprofen* (Motrin*) 600 Mg Tab, 600 MG PO Q6H Y for PAIN, #30 TAB Prov:MONTSERRAT SALES MD 05/27/16 Clindamycin Hcl* (Clindamycin Hcl*) 300 Mg Capsule, 300 MG PO QID for 10 Days, CAP Prov:MONTSERRAT SALES MD 05/27/16 Hydrocodone/Acetaminophen ([place] 10-325 Tablet) 1 Each Tablet, 1 TAB PO Q6H Y for PAIN, #16 TAB Prov:STELLA PAVON MD 05/20/16 Acyclovir* (Zovirax*) 800 Mg Tablet, 800 MG PO 5 TIMES DAILY for 7 Days, TAB Prov:STELLA PAVON MD 05/20/16 Reported Medications [No Meds Taken] No Conflict Check 06/23/10 Allergies Allergies: Coded Allergies: No Known Drug Allergy (Verified Allergy, Mild, 12/08/16) PMhx/Soc History of Surgery: No Anesthesia Reaction: No Hx Neurological Disorder: No Hx Respiratory Disorders: No Hx Cardiac Disorders: No Hx Psychiatric Problems: No Hx Miscellaneous Medical Probl: Yes (gout, ) Hx Alcohol Use: No Hx Substance Use: No Hx Tobacco Use: No Physical Exam Vitals Vital Signs Date Time Temp Pulse Resp B/P Pulse Ox O2 Delivery O2 Flow Rate FiO2 01/31/17 14:27 97.2 88 18 171/103 98 Physical Exam GENERAL: The patient is well developed and appropriate for usual state of health , in no apparent distress. HEENT: Atraumatic. Conjunctivae are pink. Pupils equal, round, and reactive to light. Extraocular muscles are grossly intact. Bilateral tympanic membranes are clear with no evidence of erythema, bulging or perforation. No sinus tenderness. CHEST: Clear to auscultation bilaterally. There are no rales, wheezes or rhonchi. HEART: Regular rate and rhythm. No murmurs, clicks, rubs or gallops. ABDOMEN: soft and non distended. no guarding or rebounding. ttp in all regions of the abdomen. EXTREMITIES: Equal pulses bilaterally. There is no peripheral clubbing, cyanosis or edema. No focal swelling or erythema. Full range of motion. Grossly neurovascularly intact. NEURO: Alert and oriented. Cranial nerves II through XII are intact. Motor strength in all 4 extremities with 5/5 strength. Sensation grossly intact. Normal speech and gait. Negative Rhomberg. +2 DTRs. SKIN: There is no apparent rash or petechia. The skin is warm and dry. Result Diagram: 01/31/17 1701 01/31/17 1701 Results 24 hrs Laboratory Tests Test 01/31/17 17:01 01/31/17 17:50 White Blood Count 11.010^3/ul Red Blood Count 5.1210^6/ul Hemoglobin 15.3g/dl Hematocrit 44.4% Mean Corpuscular Volume 86.7fl Mean Corpuscular Hemoglobin 29.9pg Mean Corpuscular Hemoglobin Concent 34.5g/dl Red Cell Distribution Width 12.9% Platelet Count 84752^3/UL Mean Platelet Volume 11.6fl Neutrophils % 83.9% Lymphocytes % 12.1% Monocytes % 3.1% Eosinophils % 0.0% Basophils % 0.4% Nucleated Red Blood Cells % 0.0/100WBC Neutrophils # 9.310^3/ul Lymphocytes # 1.310^3/ul Monocytes # 0.310^3/ul Eosinophils # 0.010^3/ul Basophils # 0.010^3/ul Nucleated Red Blood Cells # 0.010^3/ul Sodium Level 144mmol/L Potassium Level 4.2mmol/L Chloride Level 109mmol/L Carbon Dioxide Level 22mmol/L Anion Gap 17 Blood Urea Nitrogen 18mg/dl Creatinine 1.14mg/dl Glucose Level 137mg/dl Calcium Level 9.8mg/dl Total Bilirubin 0.5mg/dl Direct Bilirubin 0.00mg/dl Indirect Bilirubin 0.5mg/dl Aspartate Amino Transf (AST/SGOT) 29IU/L Alanine Aminotransferase (ALT/SGPT) 51IU/L Alkaline Phosphatase 110IU/L Troponin I < 0.012ng/ml Total Protein 9.3g/dl Albumin 4.8g/dl Globulin 4.50g/dl Albumin/Globulin Ratio 1.06 Lipase 89U/L Urine Color YELLOW Urine Clarity CLEAR Urine pH 5.0 Urine Specific [place] 1.018 Urine Ketones NEGATIVEmg/dL Urine Nitrite NEGATIVEmg/dL Urine Bilirubin NEGATIVEmg/dL Urine Urobilinogen NEGATIVEmg/dL Urine Leukocyte Esterase NEGATIVELeu/ul Urine Microscopic RBC 2/HPF Urine Microscopic WBC 1/HPF Urine Hemoglobin NEGATIVEmg/dL Urine Glucose NEGATIVEmg/dL Urine Total Protein 1+mg/dl Current Medications Medications (Trade) Dose Ordered Sig/Rosa Route PRN Reason Start Time Stop Time Status Last Admin Dose Admin Sodium Chloride (NS) 1,000 ml @ 1,000 mls/hr Q1H STAT IV 01/31/17 16:46 01/31/17 17:45 DC 01/31/17 16:56 Morphine Sulfate (morphine) 4 mg ONCE STAT IV 01/31/17 16:46 01/31/17 16:47 DC 01/31/17 16:57 Ondansetron HCl (Zofran Inj) 4 mg ONCE STAT IV 01/31/17 16:46 01/31/17 16:47 DC 01/31/17 16:56 Famotidine (Pepcid Iv) 20 mg ONCE STAT IV 01/31/17 16:46 01/31/17 16:47 DC 01/31/17 16:56 Meclizine HCl (Antivert) 25 mg ONCE ONCE PO 01/31/17 19:30 01/31/17 19:31 DC 01/31/17 19:16 Procedures/MDM EKG [address] elevation no T-wave inversion read by Dr. Tiwari. Troponin was negative. Patient's heart score= 1. Low suspicion for cardiac event This is a 51-year-old male presents to the ER with multiple complaints. My supervising physician was at bedside and examined patient. Laboratory studies are all normal with no evidence of significant leukocytosis, electrolyte abnormality or other emergent conditions. CT scan of the abdomen is negative for acute abdominal etiology. Upon reexamination patient was stating that he felt very dizzy and weak, therefore CT of the brain was ordered however there was no evidence of abnormality. Patient is neurologically intact with no focal neurological deficits. Pain was controlled here in the ER with morphine, he did not have any episodes of vomiting while in the ER, and he's able to tolerate PO fluids. He was given meclizine for his dizziness, stating that he did feel better. Likely has a viral illness, versus food poisoning. Patient is afebrile and has not had a history of fever at home. Patient will be sent home with Zofran. He needs to follow-up with his primary care doctor within 1-2 days or return to ER sooner if symptoms worsen. My medical decision making shared with the patient understands and agrees with plan. Departure Diagnosis: Primary Impression: Nausea and vomiting Condition: Stable Patient Instructions: Nausea and Vomiting-Adult Additional Instructions: Kalia al doctor MAANA y temi dat DONNA PARA DENTRO DE 1-2 NIELSEN.Dgale a la secretaria que nosotros le instruimos hacer esta donna.Avise o llame si spence condicin se empeora antes de la donna. Regresa aqui si peor o no mejor. DONNIE SANTOS Jan 31, 2017 20:23
[2017-01-31 20:25] VITALS: BP 132/75; PULSE 74; RESP 18
== END 2017-01-31 20:26 | disposition home or self-care (01) ==
LOC: FTE 14:24
DX: R11.2 Nausea with vomiting, unspecified (principal); R53.1 Weakness; R51 Headache
CPT/HCPCS: 36415; 70450; 74176; 76705; 80053; 81001; 83690; 84484; 85025; 93005; 96374; 96375; J2270; J2405; J7030; Z7502; Z7610

== ENCOUNTER 2018-09-17 12:22 | Emergency (ER) | payer MEDICAID ==
[~2018-09-17] VITALS: Ht 167.6 cm; Wt 102.3 kg
[~2018-09-17 12:22] MED LIST changes: +ACYC800T5 PO; -ACYC800T57 PO; -CLIN-73 PO; +CLIN300C10 PO; +HYDR-3980 PO; +HYDR-4011 PO; -HYDR-902 PO; -HYDR-906 PO; -IBUP800T25 PO; +IBUP800T48 PO; -NAPR-260 PO; +NAPR-985 PO; +ONDA4TAB13 PO
[2018-09-17 12:39] VITALS: Ht 167.6 cm; Wt 102.3 kg
[2018-09-17] MEDS ORDERED: IBUP-1542 PO (14:08)
[2018-09-17] MEDS ORDERED: KETOROLAC 60 MG INJ IM STA (14:09)
[2018-09-17 14:15] VITALS: BP 146/99; PULSE 79; RESP 20
--- NOTE | 2018-09-17 14:21 | ERD ---
ER Documentation Chief Complaint Chief Complaint c/o right elbow and right knee pain, hx: arthritis HPI 53-year-old male with history of arthritis presents with complaint of right elbow and right knee pain for the past 2 weeks. Patient is requesting joint injection. Patient denies any fevers, chills, injury, trauma, edema, erythema, weakness, numbness. ROS All systems reviewed and are negative except as per history of present illness. Medications Home Meds Active Scripts Ibuprofen* (Motrin*) 600 Mg Tab, 600 MG PO Q6, #15 TAB Prov:TONY MICHELLE 09/17/18 Ondansetron Hcl* (Zofran*) 4 Mg Tab, 4 MG PO Q4H PRN for NAUSEA AND OR VOMITING for 3 Days, TAB Prov:DONNIE SANTOS 01/31/17 Colchicine* (Colcrys*) 0.6 Mg Tablet, 0.6 MG PO as directed, #3 TAB Prov:MARKO ORSENBAUM PA-C 07/14/16 Naproxen* (Naprosyn*) 500 Mg Tablet, 500 MG PO BID PRN for PAIN AND/OR INFLAMMATION, #30 TAB Prov:SONDRA,CARSON 06/12/16 Hydrocodone/Acetaminophen ([place] 5-325 Tablet) 1 Each Tablet, 1 TAB PO Q6H PRN for PAIN, #7 TAB Prov:SONDRA,CARSON 06/12/16 Ibuprofen* (Motrin*) 800 Mg Tab, 800 MG PO Q6H PRN for PAIN AND OR ELEVATED TEMP, #30 TAB Prov:PASILABAN,KLAR F 06/03/16 Prednisone (Prednisone) 20 Mg Tablet, 40 MG PO DAILY for 3 Days, TAB Prov:PASILABAN,KLAR F 06/03/16 Prednisone (Prednisone) 20 Mg Tab, 20 MG PO DAILY for 3 Days, TAB Prov:PASILABAN,KLAR F 06/03/16 Prednisone (Prednisone) 10 Mg Tab, 10 MG PO DAILY for 3 Days, TAB Prov:PASILABAN,KLAR F 06/03/16 Ibuprofen* (Motrin*) 600 Mg Tab, 600 MG PO Q6H PRN for PAIN, #30 TAB Prov:MONTSERRAT SALES MD 05/27/16 Clindamycin Hcl* (Clindamycin Hcl*) 300 Mg Capsule, 300 MG PO QID for 10 Days, CAP Prov:MONTSERRAT SALES MD 05/27/16 Hydrocodone/Acetaminophen ([place] 10-325 Tablet) 1 Each Tablet, 1 TAB PO Q6H PRN for PAIN, #16 TAB Prov:STELLA PAVON MD 05/20/16 Acyclovir* (Zovirax*) 800 Mg Tablet, 800 MG PO 5 TIMES DAILY for 7 Days, TAB Prov:STELLA PAVON MD 05/20/16 Reported Medications [No Meds Taken] No Conflict Check 06/23/10 Allergies Allergies: Coded Allergies: No Known Drug Allergy (Verified Allergy, Mild, 12/08/16) PMhx/Soc History of Surgery: No Anesthesia Reaction: No Hx Neurological Disorder: No Hx Respiratory Disorders: No Hx Cardiac Disorders: No Hx Psychiatric Problems: No Hx Miscellaneous Medical Probl: Yes (gout, ) Hx Alcohol Use: No Hx Substance Use: No Hx Tobacco Use: No FmHx Family History: No diabetes, No coronary disease, No other Physical Exam Vitals Vital Signs Date Temp Pulse Resp B/P (MAP) Pulse Ox O2 O2 Flow FiO2 Time Delivery Rate 09/17/18 98.4 85 20 155/103 97 12:39 (120) Physical Exam Const: No acute distress Head: Atraumatic Eyes: Normal Conjunctiva ENT: Normal External Ears, Nose and Mouth. Neck: Full range of motion. No meningismus. Resp: Clear to auscultation bilaterally Cardio: Regular rate and rhythm, no murmurs Abd: Soft, non tender, non distended. Normal bowel sounds Skin: No petechiae or rashes Back: No midline or flank tenderness Ext: No cyanosis, or edema Neur: Awake and alert Psych: Normal Mood and Affect lower Extremity - bilateral: Skin: No laceration Compartments: Soft Motor: Full active range of motion hip/knee/ankle/foot Sensation: Intact to light touch FDWS/MF/LF/P surfaces. Bones: Nontender pelvis/knee/proximal tibia/ malleoli/foot Joints: No effusion or laxity Pulses/Perfusion: 2+ DP, Capillary refill < 2 seconds Upper Extremity - bilateral: Skin: No laceration, or evidence of external trauma Compartments: Soft Motor: Full active range of motion shoulder/elbow/wrist/ hand Sensation: Intact shoulder/pinky/middle finger/thumb web space Bones: Nontender humerus/elbow/forearm/wrist/hand Snuffbox: Nontender Joints: No effusion Pulses/Perfusion: 2+ radial, Capillary refill < 2 seconds Results 24 hrs Current Medications Medications Dose Sig/Rosa Start Time Status Last (Trade) Ordered Route PRN Stop Time Admin Dose Reason Admin Ketorolac 60 mg ONCE STAT 09/17/18 DC Tromethamine IM 14:09 (Toradol) 09/17/18 14:10 Procedures/MDM MDM: Patient's physical exam was within normal limits and has no history of any kind of injury. Patient's presentation is consistent with his history of arthritis. Patient was given Toradol in the ER discharged with ibuprofen. Patient was advised that if he wants to get knee injections he needs to have a primary care physician refer him. Patient understood and agreed to follow-up with primary care. In addition I printed out a list of community clinics in the area if he does not have a doctor. I have low suspicion for neurovascular compromise, compartment syndrome, fracture, osteomyelitis, septic joint, DVT, or other emergent condition. At this time, patient is stable for discharge and outpatient management. I have instructed the patient to follow-up with his/her primary care physician in 1-2 days. I have discussed with the patient the possibility of needing to see a specialist for further workup and imaging studies if symptoms persist. I have instructed the patient to promptly return to the ER for any new or worsening symptoms including but not limited to increased pain, fever, nausea, vomiting, weakness or LOC. The patient and/or family expressed understanding of and agreement with this plan. All questions were answered. Home care instructions were provided. Communication with patient both during the exam and instructions for discharge were performed with using a local hazmat driver . Patient gave verbal confirmation to the practitioner, through the local hazmat driver, that they understood everything that was being said to them. DISCLAIMER: Inadvertent spelling and grammatical errors are likely due to EHR/dictation software use and do not reflect on the overall quality of patient care. Also, please note that the electronic time recorded on this note does not necessarily reflect the actual time of the patient encounter. Departure Diagnosis: Primary Impression: Arthritis Condition: Stable Patient Instructions: What Is Osteoarthritis?, Osteoarthritis: Non-invasive Treatment Options, Osteoarthritis: Common Sites, Osteoarthritis: Coping with Pain, Osteoarthritis: Exercise, Osteoarthritis: Managing Pain, Osteoarthritis: Tips for Daily Living, Osteoarthritis: Injections or Surgery Referrals: COMMUNITY CLINICS YOU HAVE RECEIVED A MEDICAL SCREENING EXAM AND THE RESULTS INDICATE THAT YOU DO NOT HAVE A CONDITION THAT REQUIRES URGENT TREATMENT IN THE EMERGENCY DEPARTMENT. FURTHER EVALUATION AND TREATMENT OF YOUR CONDITION CAN WAIT UNTIL YOU ARE SEEN IN YOUR DOCTORS OFFICE WITHIN THE NEXT 1-2 DAYS. IT IS YOUR RESPONSIBILITY TO MAKE AN APPOINTMENT FOR FOLOW-UP CARE. IF YOU HAVE A PRIMARY DOCTOR --you should call your primary doctor and schedule an appointment IF YOU DO NOT HAVE A PRIMARY DOCTOR YOU CAN CALL OUR PHYSICIAN REFERRAL HOTLINE AT IF YOU CAN NOT AFFORD TO SEE A PHYSICIAN YOU CAN CHOSE FROM THE FOLLOWING [facility] [address] [facility] [facility] [address] [facility] [address] [facility] [facility] [address] [facility]. [facility] [address] [facility]. [facility] [address] Additional Instructions: FOLLOW UP WITH YOUR PRIMARY CARE PHYSICIAN TOMORROW.Return to this facility if you are not improving as expected. TONY MICHELLE Sep 17, 2018 14:21
== END 2018-09-17 14:55 | disposition home or self-care (01) ==
LOC: FTE 12:22
DX: M19.90 Unspecified osteoarthritis, unspecified site (principal)
CPT/HCPCS: 96372; J1885; Z7502